=== PATIENT | male | born 1985 | race Caucasian/White ===

== ENCOUNTER 2018-03-17 13:42 | Emergency (ER) | payer SELFPAY ==
[~2018-03-17] VITALS: Ht 170.2 cm; Wt 72.6 kg
[2018-03-17 14:30] VITALS: BP 138/94; Ht 170.2 cm; Wt 72.6 kg
== END 2018-03-17 15:10 | disposition home or self-care (01) ==
LOC: ED 13:42
DX: Z03.89 Encounter for observation for other suspected diseases and conditions ruled out (principal)